=== PATIENT | male | born 1995 | race Caucasian/White ===

== ENCOUNTER 2021-12-03 19:40 | Emergency (ER) | payer OTHER ==
[~2021-12-03] VITALS: Ht 167.6 cm; Wt 74.8 kg
[2021-12-03 21:06] LABS: ABSOLUTE NEUTROPHILS 10.2 thou/uL (1.4-8.2); BASOPHILS 0.7 % (0.0-2.0); EOSINOPHILS 0.4 % (0.0-3.0); HEMATOCRIT 46.4 % (42.0-52.0); HEMOGLOBIN 15.7 gm/dL (14.0-18.0); LYMPHOCYTES 4.2 % (24.0-44.0); MCH 31.4 pg (26.0-34.0); MCHC 33.9 g/dL (28.0-37.0); MCV 92.8 fL (80.0-100.0); MONOCYTES 4.1 % (1.0-8.0); PLATELET COUNT 244 thou/uL (150-400); POLYS 90.6 % (36.0-66.0); RDW 12.5 % (10.5-14.5); WBC 11.3 thou/uL (4.0-11.0)
[2021-12-03 21:12] LABS: CALCIUM 9.5 mg/dL (8.5-10.1); CREATININE 0.8 mg/dL (0.7-1.3); POTASSIUM 3.7 mmol/L (3.5-5.1)
[2021-12-03 21:18] LABS: ALBUMIN 4.6 g/dL (3.4-5.0); TOTAL BILIRUBIN 0.8 mg/dL (0.2-1.0); TOTAL PROTEIN 7.9 g/dL (6.4-8.2)
[2021-12-03] MEDS ORDERED: ZOFRAN ODT4 MG PO (21:35)
[2021-12-03 22:05] VITALS: BP 112/81
== END 2021-12-03 22:21 | disposition home or self-care (01) ==
LOC: ER 19:40
PROVIDERS: Nurse Practitioner
DX: A08.39 Other viral enteritis (principal); Z20.822 Contact with and (suspected) exposure to COVID-19; F32.9 Major depressive disorder, single episode, unspecified; F41.9 Anxiety disorder, unspecified; F12.90 Cannabis use, unspecified, uncomplicated; Z88.2 Allergy status to sulfonamides